=== PATIENT | female | born 1970 ===

== ENCOUNTER 2016-12-18 11:42 | Emergency (ER) | payer OTHER ==
[2016-12-18 11:48] VITALS: BP 107/78; PULSE 66; O2SAT 100
[2016-12-18 11:49] VITALS: BMI 24.4
[2016-12-18 12:22] VITALS: RESP 18; TEMP 98
[2016-12-18] MEDS ORDERED: Sodium Chloride 0.9% 1,000 ML IV STA (12:35)
[2016-12-18 13:02] LABS: RBC URINE 4 /hpf (0-3); URINE BILIRUBIN NEGATIVE (NEGATIVE); URINE BLOOD NEGATIVE (NEGATIVE); URINE COLOR YELLOW (YELLOW); URINE GLUCOSE (UA) NEG (Normal); URINE KETONE NEGATIVE (NEGATIVE); URINE LEUKOCYTE ESTERASE NEG Leu/uL (Negative); URINE PROTEIN NEGATIVE (NEGATIVE); URINE UROBILINOGEN 0.2-1.0 mg/dL (0.2-1.0); WBC URINE 1 /hpf (0-5)
[2016-12-18 13:06] LABS: BASO % 0.5 % (0.0-2.0); EOS # 0.2 K/uL (0.0-0.7); EOS % 2.5 % (0.0-4.0); HEMATOCRIT 43.5 % (34.0-47.0); LYMPH # 1.5 K/uL (1.0-4.3); LYMPH % 23.5 % (20.0-40.0); MEAN CELL VOLUME 96.1 fl (81.0-99.0); MEAN CORPUSCULAR HEMOGLOBIN 32.7 pg (27.0-31.0); MEAN CORPUSCULAR HGB CONC 34.1 g/dL (33.0-37.0); MEAN PLATELET VOLUME 8.4 fl (7.2-11.7); MONO # 0.4 K/uL (0.0-0.8); MONO % 7.1 % (0.0-10.0); NEUT # 4.2 K/uL (1.8-7.0); NEUT % 66.4 % (50.0-75.0); RED CELL DISTRIBUTION WIDTH 12.8 % (11.5-14.5); WHITE BLOOD COUNT 6.3 K/uL (4.8-10.8)
[2016-12-18 13:15] LABS: ALB/GLOB RATIO 1.4 (1.0-2.1); ALKALINE PHOSPHATASE 71 U/L (38-126); ALT/SGPT 29 U/L (9-52); AST/SGOT 22 U/L (14-36); BILIRUBIN,TOTAL 0.5 mg/dl (0.2-1.3); BLOOD UREA NITROGEN 20 mg/dl (7-17); CALCIUM 9.3 mg/dL (8.4-10.2); CARBON DIOXIDE 27 mmol/L (22-30); CHLORIDE 103 mmol/L (98-107); GFR AFRICAN-AMERICAN > 60; GLUCOSE,RANDOM 83 mg/dL (65-105); POTASSIUM 4.2 MMOL/L (3.6-5.0); SODIUM 139 mmol/l (132-148); TOTAL PROTEIN 7.2 G/DL (6.3-8.2)
--- NOTE | 2016-12-18 13:23 | ED PDOC ---
HPI: Abdomen Time Seen by Provider: 12/18/16 12:28 Chief Complaint (Nursing): Abdominal Pain Chief Complaint (Provider): RLQ pain History Per: Patient History/Exam Limitations: no limitations Onset/Duration Of Symptoms: Hrs (4-5), Persistent Outside of [place] travel?: No Current Symptoms Are (Timing): Still Present Location Of Pain/Discomfort: RLQ Quality Of Discomfort: Aching, Cramping, Stabbing Associated Symptoms: Chills, Nausea, Loss Of Appetite, Back Pain. denies: Fever , Vomiting, Diarrhea, Chest Pain, Constipation, Urinary Symptoms Exacerbating Factors: Movement Abnormal Vaginal Bleeding: No Past Medical History Reviewed: Historical Data, Nursing Documentation, Vital Signs Vital Signs: Last Vital Signs Temp 98.0 F 12/18/16 12:16 Pulse 66 12/18/16 12:16 Resp 18 12/18/16 12:16 BP 107/78 12/18/16 12:16 Pulse Ox 100 12/18/16 13:23 - Medical History PMH: No Chronic Diseases - Surgical History Surgical History: Cholecystectomy - Family History Family History: States: No Known Family Hx - Home Medications Home Medications: Ambulatory Orders Medication Instructions Recorded Ketorolac Tromethamine [Toradol] 10 mg PO TID #20 cap 12/18/16 - Allergies Allergies/Adverse Reactions: Allergies Allergy/AdvReac Type Severity Reaction Status Date / Time hazelnut Allergy VOMITING Verified 12/18/16 13:14 fruits Allergy ANAPHYLAXIS Uncoded 12/18/16 13:13 Review of Systems ROS Statement: Except As Marked, All Systems Reviewed And Found Negative Gastrointestinal: Positive for: Abdominal Pain Physical Exam - Reviewed Nursing Documentation Reviewed: Yes Vital Signs Reviewed: Yes - Physical Exam Appears: Positive for: Well, Non-toxic, No Acute Distress Skin: Positive for: Normal Color, Warm, DRY Cardiovascular/Chest: Positive for: Regular Rate, Rhythm Respiratory: Positive for: CNT, Normal Breath Sounds Gastrointestinal/Abdominal: Positive for: Bowel Sounds, Soft, Tenderness (RLQ pain), Guarding Back: Positive for: Normal Inspection. Negative for: L CVA Tenderness, R CVA Tenderness Extremity: Positive for: Normal ROM Neurologic/Psych: Positive for: Alert, Oriented - Laboratory Results Result Diagrams: 12/18/16 12:56 12/18/16 12:56 - ECG O2 Sat by Pulse Oximetry: 100 - Progress ED Course And Treament: impression: r/o appy CT IV contrast, cbc/cmp/UA torodol for pain, NS fluids Medical Decision Making Medical Decision Making: PT on CT scan with ruptured left ovary cysts, however pain is on the right side. PT noted to have right ovarian cyst. pt improved significantly with use of torodol will d.c with CT scan report copy and advised to f.u with obgyn for further eval. Disposition - Clinical Impression Clinical Impression: Ovarian cyst - Patient ED Disposition Is Patient to be Admitted: No Counseled Patient/Family Regarding: Studies Performed, Diagnosis, Need For Followup, Rx Given - Disposition Referrals: [facility] [Outside] [facility] [Outside] Disposition: Routine/Home Disposition Time: 15:19 Condition: STABLE Prescriptions: Ketorolac Tromethamine [Toradol] 10 mg PO TID #20 cap Instructions: Ovarian Cyst (ED) Forms: [employer] ([place]istani)
[2016-12-18] MEDS ORDERED: Iohexol 300 100 ML IJ ONE (13:54)
[2016-12-18] MEDS ORDERED: Sodium Chloride 0.9% 50 ML IV ONE (13:55)
--- NOTE | 2016-12-18 15:05 | CT ---
PROCEDURE: CT Abdomen and Pelvis with contrast HISTORY: RLQ pain COMPARISON: None. TECHNIQUE: Contrast dose: 95 mL Omnipaque 300 Radiation dose: Total exam DLP = 0518.05 mGy-cm. This CT exam was performed using one or more of the following dose reduction techniques: Automated exposure control, adjustment of the mA and/or kV according to patient size, and/or use of iterative reconstruction technique. FINDINGS: LOWER THORAX: Unremarkable. LIVER: Unremarkable. No gross lesion or ductal dilatation. GALLBLADDER AND BILE DUCTS: Status post cholecystectomy PANCREAS: Unremarkable. No gross lesion or ductal dilatation. SPLEEN: Unremarkable. ADRENALS: Unremarkable. No mass. KIDNEYS AND URETERS: Unremarkable. No hydronephrosis. No solid mass. VASCULATURE: Unremarkable. No aortic aneurysm. BOWEL: Unremarkable. No obstruction. No gross mural thickening. APPENDIX: Normal appendix. PERITONEUM: Trace fluid in cul-de-sac and left adnexa. LYMPH NODES: Unremarkable. No enlarged lymph nodes. BLADDER: Inadequately distended. Mildly thickened wall likely due to poor distension. Please correlate with urinalysis to rule out cystitis. REPRODUCTIVE: Intrauterine device noted within uterus. Right ovarian cyst, 2.3 cm. Peripherally enhancing irregularly-shaped left ovarian cyst, 1.8 cm, consistent with ruptured or involuting ovarian cysts. BONES: No acute fracture. OTHER FINDINGS: None. IMPRESSION: Ruptured/involuting left ovarian cyst, 1.8 cm. 2.3 cm right ovarian cyst. No evidence of appendicitis. Status post cholecystectomy. Otherwise unremarkable. .
== END 2016-12-18 16:40 | disposition home or self-care (01) ==
LOC: H.ER 11:42
DX: N83.209 Unspecified ovarian cyst, unspecified side (principal)
CPT/HCPCS: 74177; 80053; 81003; 81025; 85025; 96374; 99283; J1885; J7040; Q9967